=== PATIENT | male | born 1950 | race Caucasian/White ===

== ENCOUNTER 2022-03-13 07:10 | Day surgery (SDC) | payer OTHER ==
[~2022-03-13] VITALS: Ht 185.4 cm; Wt 100.5 kg
[~2022-03-13 07:10] MED LIST: ALLO300 PO; BISA5EC PO; BUME1 PO; CIPR500 PO; ELIQUIS5 M2 PO; EPLERENONE PO; FERR325 PO; FINA5 PO; FURO40 PO; HYDCHL12.5; HYDCHL12.5 PO; HYDCHL25 PO; Hair, Skin & N1 EACH; Humulin N100 UNIT/1 SC; INS70/30I SC; INSUASPI SC; INSULANPEN SC; LACT10SY PO; LEVOTHYROXINE75 MC8 PO; MYCO250 PO; ONDA4 PO; Omeprazole20 M1 PO; PANT40; PANT40 PO; POTCHL10ER PO; PRED5 PO; Percocet 5-3251 EACH PO; RIFA550T2 PO; Ranitidine HCl300 MG PO; SUCR1SU PO; TACR1 PO; TAMS.4ER PO; Ventolin/Prove6.7 GM INH
[2022-03-13] MEDS ORDERED: ONDA4 PO (07:44)
--- NOTE | 2022-03-13 07:52 | NUR ---
03/13/22 0752 Tata Graves AT 0759 P [id number]
== END 2022-03-13 09:12 | disposition home or self-care (01) ==
LOC: ORSCSDS 07:10
PROVIDERS: Ophthalmology
PROC: 08RK3JZ Replacement of Left Lens with Synthetic Substitute, Percutaneous Approach (ICD-10-PCS; principal; 2022-03-13 08:30)
DX: H25.13 Age-related nuclear cataract, bilateral (principal); Z87.891 Personal history of nicotine dependence; E11.9 Type 2 diabetes mellitus without complications; I10 Essential (primary) hypertension; Z79.899 Other long term (current) drug therapy; Z79.84 Long term (current) use of oral hypoglycemic drugs
CPT/HCPCS: 82947; J2001; J2250; J3010; J3301; J7040; V2632

== ENCOUNTER 2023-01-31 17:04 | Emergency (ER) | payer OTHER ==
[~2023-01-31] VITALS: Ht 182.9 cm; Wt 95.2 kg
[2023-01-31 17:49] LABS: BASOPHILS ABSOLUTE AUTO 0.06 K/mm3 (0.00-0.23); BASOPHILS PERCENT AUTO 1 % (0-2); EOSINOPHILS ABSOLUTE AUTO 0.09 K/mm3 (0.00-0.68); EOSINOPHILS PERCENT AUTO 1 % (0-6); Hematocrit 44.5 % (37.0-53.0); Hemoglobin 14.2 g/dL (13.5-17.5); IMMATURE GRAN ABSOLUTE AUTO 0.06 K/mm3 (0.00-0.10); IMMATURE GRAN PERCENT AUTO 1 % (0-1); LYMPHOCYTES ABSOLUTE AUTO 2.64 K/mm3 (0.84-5.20); LYMPHOCYTES PERCENT AUTO 20 % (21-46); MONOCYTES ABSOLUTE AUTO 1.01 K/mm3 (0.16-1.47); MONOCYTES PERCENT AUTO 8 % (4-13); Mean Corpuscular HGB Conc 31.9 g/dL (31.5-36.5); Mean Corpuscular Volume 79 fL (80-100); Mean Platelet Volume 10.5 fL (9.1-12.4); NEUTROPHILS ABSOLUTE AUTO 9.33 K/mm3 (1.96-9.15); NEUTROPHILS PERCENT AUTO 71 % (41-73); Platelet Count 249 K/mm3 (150-400); RDW Coefficient Variation 14.8 % (11.7-14.2); RDW Standard Deviation 41.6 fL (35.1-46.3); Red Blood Cell Count 5.67 M/mm3 (4.30-5.90); White Blood Cell Count 13.19 K/mm3 (4.00-11.30)
[2023-01-31 18:07] LABS: Albumin, Blood 3.8 g/dL (3.4-5.0); Albumin/Globulin Ratio 1.2 (0.8-1.8); Bilirubin, Total 0.9 mg/dL (0.1-1.0); Bun/Creatinine Ratio 15.9 (12.0-20.0); Calcium, Blood 9.1 mg/dL (8.5-10.1); Creatinine, Blood 1.64 mg/dL (0.60-1.20); Globulin, Blood 3.2 g/dL (2.2-4.0); Potassium, Blood 4.7 mmol/L (3.5-5.5)
[2023-01-31 18:35] LABS: Magnesium, Blood 1.9 mg/dL (1.6-2.4)
[2023-01-31 18:36] LABS: Phosphorus, Blood 2.8 mg/dL (2.5-4.9); Thyroid Stimulating Hormone 2.46 uIU/mL (0.360-4.800)
[2023-01-31] MEDS ORDERED: CARV3.125 PO (22:27)
[2023-02-01 03:38] VITALS: BP 137/82
== END 2023-02-01 03:39 | disposition home or self-care (01) ==
LOC: ER 17:04
PROVIDERS: Emergency Medicine; Physician Assistant
DX: I48.92 Unspecified atrial flutter (principal); I10 Essential (primary) hypertension; E11.9 Type 2 diabetes mellitus without complications; B19.20 Unspecified viral hepatitis C without hepatic coma; Z91.030 Bee allergy status; Z91.048 Other nonmedicinal substance allergy status; Z79.01 Long term (current) use of anticoagulants; Z79.52 Long term (current) use of systemic steroids; Z79.899 Other long term (current) drug therapy; Z87.891 Personal history of nicotine dependence
CPT/HCPCS: 71046; 80053; 83690; 83735; 84100; 84443; 84484; 85025; 85379; 93005; 93010; 96360; 99285-25; A9270; J7030

== ENCOUNTER 2023-05-24 09:42 | Emergency (ER) | payer OTHER ==
[~2023-05-24] VITALS: Ht 180.3 cm; Wt 90.7 kg
[~2023-05-24 09:42] MED LIST changes: +CARV3.125 PO
[2023-05-24 09:58] LABS: BASOPHILS ABSOLUTE AUTO 0.02 K/mm3 (0.00-0.23); BASOPHILS PERCENT AUTO 0 % (0-2); EOSINOPHILS ABSOLUTE AUTO 0.09 K/mm3 (0.00-0.68); EOSINOPHILS PERCENT AUTO 1 % (0-6); Hemoglobin 12.2 g/dL (13.5-17.5); IMMATURE GRAN ABSOLUTE AUTO 0.02 K/mm3 (0.00-0.10); IMMATURE GRAN PERCENT AUTO 0 % (0-1); LYMPHOCYTES ABSOLUTE AUTO 0.86 K/mm3 (0.84-5.20); LYMPHOCYTES PERCENT AUTO 13 % (21-46); MONOCYTES ABSOLUTE AUTO 0.46 K/mm3 (0.16-1.47); MONOCYTES PERCENT AUTO 7 % (4-13); Mean Corpuscular HGB 24.9 pg (26.0-34.0); Mean Corpuscular HGB Conc 31.3 g/dL (31.5-36.5); Mean Corpuscular Volume 80 fL (80-100); Mean Platelet Volume 10.7 fL (9.1-12.4); NEUTROPHILS ABSOLUTE AUTO 5.27 K/mm3 (1.96-9.15); NEUTROPHILS PERCENT AUTO 79 % (41-73); Platelet Count 191 K/mm3 (150-400); RDW Standard Deviation 39.7 fL (35.1-46.3); Red Blood Cell Count 4.89 M/mm3 (4.30-5.90); White Blood Cell Count 6.72 K/mm3 (4.00-11.30)
[2023-05-24 10:16] LABS: Albumin, Blood 3.3 g/dL (3.4-5.0); Albumin/Globulin Ratio 1.1 (0.8-1.8); Bilirubin, Total 0.5 mg/dL (0.1-1.0); Calcium, Blood 8.5 mg/dL (8.5-10.1); Creatinine, Blood 1.53 mg/dL (0.60-1.20); Potassium, Blood 4.3 mmol/L (3.5-5.5); Total Protein, Blood 6.3 g/dL (6.4-8.2)
[2023-05-24 10:47] LABS: Influenza A, PCR NEGATIVE (NEGATIVE); Influenza B, PCR NEGATIVE (NEGATIVE); Resp Syncytial Virus, PCR NEGATIVE (NEGATIVE)
[2023-05-24 11:00] LABS: SARS-Cov-2 (COVID-19) PCR, MMC POSITIVE (NEGATIVE)
[2023-05-24 12:00] VITALS: BP 130/81
== END 2023-05-24 12:34 | disposition home or self-care (01) ==
LOC: ER 09:42
PROVIDERS: Emergency Medicine
DX: U07.1 COVID-19 (principal); E11.649 Type 2 diabetes mellitus with hypoglycemia without coma; Z79.4 Long term (current) use of insulin; Z79.01 Long term (current) use of anticoagulants; Z79.52 Long term (current) use of systemic steroids; Z79.890 Hormone replacement therapy; Z87.891 Personal history of nicotine dependence
CPT/HCPCS: 0241U; 71046; 80053; 82947; 85025; 93005; 93010; 96374; 99285-25; J2405

== ENCOUNTER 2023-11-25 21:56 | Emergency (ER) | payer OTHER ==
[~2023-11-25] VITALS: Ht 182.9 cm; Wt 90.7 kg
[2023-11-25 22:19] LABS: BASOPHILS ABSOLUTE AUTO 0.04 K/mm3 (0.00-0.23); BASOPHILS PERCENT AUTO 1 % (0-2); EOSINOPHILS ABSOLUTE AUTO 0.16 K/mm3 (0.00-0.68); EOSINOPHILS PERCENT AUTO 2 % (0-6); Hematocrit 32.8 % (37.0-53.0); Hemoglobin 10.3 g/dL (13.5-17.5); IMMATURE GRAN ABSOLUTE AUTO 0.02 K/mm3 (0.00-0.10); IMMATURE GRAN PERCENT AUTO 0 % (0-1); LYMPHOCYTES ABSOLUTE AUTO 0.68 K/mm3 (0.84-5.20); LYMPHOCYTES PERCENT AUTO 9 % (21-46); MONOCYTES ABSOLUTE AUTO 0.54 K/mm3 (0.16-1.47); MONOCYTES PERCENT AUTO 8 % (4-13); Mean Corpuscular HGB 25.1 pg (26.0-34.0); Mean Corpuscular HGB Conc 31.4 g/dL (31.5-36.5); Mean Corpuscular Volume 80 fL (80-100); Mean Platelet Volume 10.3 fL (9.1-12.4); NEUTROPHILS ABSOLUTE AUTO 5.78 K/mm3 (1.96-9.15); NEUTROPHILS PERCENT AUTO 80 % (41-73); Platelet Count 234 K/mm3 (150-400); RDW Coefficient Variation 13.7 % (11.7-14.2); RDW Standard Deviation 39.5 fL (35.1-46.3); Red Blood Cell Count 4.11 M/mm3 (4.30-5.90); White Blood Cell Count 7.22 K/mm3 (4.00-11.30)
[2023-11-25 22:40] LABS: Albumin, Blood 3.3 g/dL (3.4-5.0); Albumin/Globulin Ratio 0.9 (0.8-1.8); Bilirubin, Total 1.1 mg/dL (0.1-1.0); Bun/Creatinine Ratio 14.8 (12.0-20.0); Calcium, Blood 9.4 mg/dL (8.5-10.1); Creatinine, Blood 1.28 mg/dL (0.60-1.20); Globulin, Blood 3.5 g/dL (2.2-4.0); Potassium, Blood 4.3 mmol/L (3.5-5.5); Total Protein, Blood 6.8 g/dL (6.4-8.2)
[2023-11-25] MEDS ORDERED: NS 1,000 ML IV SCH (23:25)
[2023-11-25] MEDS ORDERED: Ondansetron HCl 2 MG / ML 2ML Vial IV ONE (23:25)
[2023-11-26] VITALS: BP 194/81
== END 2023-11-26 00:53 | disposition home or self-care (01) ==
LOC: ER 21:56
PROVIDERS: Emergency Medicine
DX: R11.2 Nausea with vomiting, unspecified (principal); Z79.899 Other long term (current) drug therapy; Z79.4 Long term (current) use of insulin; Z79.890 Hormone replacement therapy; Z79.52 Long term (current) use of systemic steroids
CPT/HCPCS: 80053; 83690; 85025; 96361; 96374; 99284-25; J2405; J7030

== ENCOUNTER 2023-12-01 14:50 | Inpatient (IN) | payer OTHER ==
[~2023-12-01] VITALS: Ht 182.9 cm; Wt 86.4 kg
[2023-12-01 15:35] LABS: BASOPHILS ABSOLUTE AUTO 0.02 K/mm3 (0.00-0.23); BASOPHILS PERCENT AUTO 0 % (0-2); EOSINOPHILS ABSOLUTE AUTO 0.07 K/mm3 (0.00-0.68); EOSINOPHILS PERCENT AUTO 1 % (0-6); Hematocrit 30.8 % (37.0-53.0); Hemoglobin 9.6 g/dL (13.5-17.5); IMMATURE GRAN ABSOLUTE AUTO 0.02 K/mm3 (0.00-0.10); IMMATURE GRAN PERCENT AUTO 0 % (0-1); LYMPHOCYTES ABSOLUTE AUTO 0.84 K/mm3 (0.84-5.20); LYMPHOCYTES PERCENT AUTO 16 % (21-46); MONOCYTES ABSOLUTE AUTO 0.35 K/mm3 (0.16-1.47); MONOCYTES PERCENT AUTO 7 % (4-13); Mean Corpuscular HGB 25.2 pg (26.0-34.0); Mean Corpuscular HGB Conc 31.2 g/dL (31.5-36.5); Mean Corpuscular Volume 81 fL (80-100); NEUTROPHILS ABSOLUTE AUTO 3.98 K/mm3 (1.96-9.15); NEUTROPHILS PERCENT AUTO 75 % (41-73); Platelet Count 175 K/mm3 (150-400); RDW Standard Deviation 40.7 fL (35.1-46.3); Red Blood Cell Count 3.81 M/mm3 (4.30-5.90); White Blood Cell Count 5.28 K/mm3 (4.00-11.30)
[2023-12-01 16:00] LABS: Albumin, Blood 3.5 g/dL (3.4-5.0); Albumin/Globulin Ratio 1.1 (0.8-1.8); Bilirubin, Total 1.2 mg/dL (0.1-1.0); Bun/Creatinine Ratio 14.6 (12.0-20.0); Calcium, Blood 8.9 mg/dL (8.5-10.1); Creatinine, Blood 2.47 mg/dL (0.60-1.20); Globulin, Blood 3.2 g/dL (2.2-4.0); Potassium, Blood 4.5 mmol/L (3.5-5.5); Total Protein, Blood 6.7 g/dL (6.4-8.2)
[2023-12-01] MEDS ORDERED: NS 1,000 ML IV SCH (20:10)
[2023-12-01] MEDS ORDERED: Acetaminophen 325 MG TABLET PO PRN (20:15)
[2023-12-01 20:36] LABS: Source, Urine Clean Catch
[2023-12-01 20:40] LABS: Appearance, Urine Hazy (Clear); Bilirubin, Urine Neg (Neg); Blood, Urine Neg (Neg); Color, Urine Yellow (P-Yellow); Glucose Qualitative, Urine 1+ (Neg); Ketones, Urine 3+ (Neg); Leukocyte Esterase, Urine 1+ (Neg); Nitrite, Urine Neg (Neg); Protein, Urine 2+ (Neg); Urobilinogen, Urine NORM (Normal)
[2023-12-01 20:50] LABS: Amorphous Light (0-Heavy); Calcium Oxalate Crystals Many /hpf
[2023-12-01 20:51] LABS: Bacteria Few /hpf; Red Blood Cells, Urine Not Seen /hpf (0-2); Squamous Epithelial Cells Rare /hpf (Few)
[2023-12-01] MEDS ORDERED: Mycophenolate Mofetil 250 MG Cap PO SCH (21:00)
[2023-12-01] MEDS ORDERED: Tacrolimus 1 MG Cap PO SCH (21:00)
[2023-12-01] MEDS ORDERED: Apixaban 5 MG Tab PO SCH (21:00)
[2023-12-01] MEDS ORDERED: NS 500 ML IV ONE (21:00)
[2023-12-01 21:21] VITALS: BP 175/86
[2023-12-01] MEDS ORDERED: BACLOFEN10 M4 (21:25)
[2023-12-01] MEDS ORDERED: BACL10 PO (21:30)
[2023-12-01] MEDS ORDERED: FentaNYL Citrate 50 MCG/ML 2 ML Injection IV PRN (21:40)
[2023-12-01] MEDS ORDERED: Metoclopramide HCl 5MG / ML 2ML Vial IV PRN (21:45)
[2023-12-01] MEDS ORDERED: Ondansetron HCl 2 MG / ML 2ML Vial IV PRN (21:45)
[2023-12-02] MEDS ORDERED: OxyCODONE HCL 5 MG TAB PO ONE (03:15)
[2023-12-02 04:06] VITALS: BP 157/68
--- NOTE | 2023-12-02 04:39 | NUR ---
NOC SHIFT SUMMARY PT ADMITTED TO ROOM 352. REPORT RECEIVED FROM ISRAEL ARIAS. PT IS NAUSEOUS BUT GETS SOME RELIEF WITH ZOFRAN. IVF RUNNING FOR DIA. POST VOID RESIDUAL DONE PER MD ORDER-BLADDER SCAN NEGATIVE. PTS BACK IS VERY PAINFUL. HE IS FRUSTRATED BECAUSE HE DOESNT FEEL LIKE FENTANYL GIVES HIM ENOUGH RELIEF TO LAST 4 HOURS. MD CALLED. ORDERS ONE TIME DOSE OF PTS HOME DOSE OF 10MG OXYCODONE BUT HESITATES TO ORDER MORE BECAUSE OF HIS RENAL FUNCTION PANEL. SAYS WE CAN SEE HOW HIS KIDNEY FUNCTION IS IN THE MORNING AND MAYBE REASSESS ORDERING HIS HOME PAIN MEDS THEN.
[2023-12-02 05:58] LABS: Hematocrit 28.3 % (37.0-53.0); Hemoglobin 8.9 g/dL (13.5-17.5); Mean Corpuscular HGB 25.3 pg (26.0-34.0); Mean Corpuscular HGB Conc 31.4 g/dL (31.5-36.5); Mean Corpuscular Volume 80 fL (80-100); Mean Platelet Volume 11.5 fL (9.1-12.4); Platelet Count 148 K/mm3 (150-400); RDW Coefficient Variation 13.8 % (11.7-14.2); Red Blood Cell Count 3.52 M/mm3 (4.30-5.90); White Blood Cell Count 4.48 K/mm3 (4.00-11.30)
[2023-12-02] MEDS ORDERED: Levothyroxine Sodium 0.075 MG Tab PO SCH (06:00)
[2023-12-02 06:24] LABS: Albumin, Blood 3.1 g/dL (3.4-5.0); Anion Gap 10 mmol/L (3-11); Blood Urea Nitrogen 29 mg/dL (8-24); Bun/Creatinine Ratio 14.2 (12.0-20.0); CO2, Blood 26 mmol/L (21-32); Calcium, Blood 8.1 mg/dL (8.5-10.1); Chloride, Blood 111 mmol/L (98-108); Creatinine, Blood 2.04 mg/dL (0.60-1.20); Glomerular Filtration Rate 34 (60-); Glucose, Blood 147 mg/dL (70-99); Magnesium, Blood 1.8 mg/dL (1.6-2.4); Phosphorus, Blood 3.3 mg/dL (2.5-4.9); Potassium, Blood 3.8 mmol/L (3.5-5.5); Sodium, Blood 143 mmol/L (136-145)
[2023-12-02 07:14] VITALS: BP 158/69
[2023-12-02] MEDS ORDERED: Insulin Human Lispro 100 Units/ML 3ML Syringe SC SCH (07:30)
[2023-12-02] MEDS ORDERED: Carvedilol 6.25 MG Tab PO SCH (08:00)
[2023-12-02] MEDS ORDERED: Allopurinol 300 MG Tab PO SCH (09:00)
[2023-12-02] MEDS ORDERED: Tamsulosin HCl 0.4 MG Cap PO SCH (09:00)
[2023-12-02] MEDS ORDERED: PredniSONE 5 MG Tab PO SCH (09:00)
[2023-12-02] MEDS ORDERED: Finasteride 5 MG Tab PO SCH (09:00)
[2023-12-02] MEDS ORDERED: OxyCODONE HCL 5 MG TAB PO PRN (09:45)
[2023-12-02] MEDS ORDERED: Baclofen 10 MG Tab PO SCH (14:00)
[2023-12-02] MEDS ORDERED: Sennosides 8.6 MG Tab PO SCH (15:40)
[2023-12-02] MEDS ORDERED: Darbepoetin Alfa In Albumn Sol 40 MCG/0.4 ML SC ONE (16:00)
[2023-12-02 16:29] VITALS: BP 155/62
--- NOTE | 2023-12-02 17:42 | NUR ---
SHIFT SUMMARY: PT ORIENTED TO SELF ONLY. DR. ALEXANDER ARRIVED EARLY THIS AM TO ASSESS PT. WAS CONSIDERING REPEAT HEAD SCAN IF FURTHER NEURO CHANGES OCCURED. NO MENTATION CHANGES FROM YESTERDAY. BED AND CHAIR ALARM IN PLACE D/T EXCESSIVE OOB W/O ASSISTANCE. PT PULLED IV EARLY THIS SHIFT. SPOKE WITH RESIDENT DOCTOR AND RECEIVED NO IV ACCESS ORDER. PT DRINKING FLUIDS WELL. PT/OT ORDER IN PLACE WITH COG EVAL PLACED IN OT ORDER. SPOKE WITH DR. DOMINGUEZ ASKING FOR PSYCH EVAL PER DENSITY CONTROL PUNCHER. PT WILL NEED ASSESSED FOR GUARDIANSHIP. FACE SHEET TUBED TO ER FOR DR. BALLARD. ER STAFF MADE AWARE. PT RECEIVED SHOWER THIS SHIFT. WOUNDS REWRAPPED/DRESSED POST SHOWER. CALL LIGHT IN REACH. BED IN LOWEST POSITION. ALARMS SET FOR BED/CHAIR.
[2023-12-02] MEDS ORDERED: CefTRIAXone Sodium 1,000 MG in NS 100 ML IV SCH (18:00)
--- NOTE | 2023-12-02 18:00 | NUR ---
SHIFT SUMMARY: PT A&O X4. PLEASANT AND COOPERATIVE WITH CARE. DR. BOWLING ARRIVED THIS AM FOR FOLLOW-UP/ASSESSMENT. CREATININE IMPROVED. DR. BOWLING STATED TO HAVE VALUE UNDER 2.00 TO BE ABLE TO D/C AT A SAFE STANDPOINT. PER DR. BOWLING, NS DECREASED TO 75/HR. PT C/O BACK PAIN THROUGHOUT SHIFT. HOME DOSAGE 10MG OXYCODONE RESTARTED WITH SCHEDULED BACLOFEN ADDED. PT RECIEVED MEDS PER EMAR WITH SLIGHT PAIN IMPROVEMENT. PT RECEIVED ARANESP INJECTION; TOLERATED WELL. ACCU CHECKS OBTAINED AND MEDICATED PER EMAR. IV ABX STARTED FOR UTI. CALL LIGHT IN REACH. BED IN LOWEST POSITION. INDEPENDENT IN ROOM.
[2023-12-03 06:04] VITALS: BP 173/64
[2023-12-03 06:15] VITALS: BP 180/85
--- NOTE | 2023-12-03 06:20 | NUR ---
PATIENT REPORTS BACK PAIN IS WELL CONTROLED THROUGH THE SHIFT. BP IS ELEVATED THIS AM 173/64, PATIENT IS ASYMPTOMATIC. DR CHERY IS NOTIFIED AND AN ORDER TO GIVE AM DOSE OF CARVEDILOL NOW.
[2023-12-03] MEDS ORDERED: Carvedilol 6.25 MG Tab PO ONE (06:30)
[2023-12-03 07:03] LABS: Albumin, Blood 3.1 g/dL (3.4-5.0); Anion Gap 7 mmol/L (3-11); Blood Urea Nitrogen 16 mg/dL (8-24); Bun/Creatinine Ratio 10.1 (12.0-20.0); CO2, Blood 28 mmol/L (21-32); Calcium, Blood 8.4 mg/dL (8.5-10.1); Chloride, Blood 109 mmol/L (98-108); Creatinine, Blood 1.58 mg/dL (0.60-1.20); Glomerular Filtration Rate 46 (60-); Glucose, Blood 163 mg/dL (70-99); Phosphorus, Blood 3.1 mg/dL (2.5-4.9); Potassium, Blood 4.3 mmol/L (3.5-5.5); Sodium, Blood 140 mmol/L (136-145)
[2023-12-03 07:58] VITALS: BP 136/61
--- NOTE | 2023-12-03 09:56 | NUR ---
VERBAL ORDER PATIENT STATED HE TAKES 18U GLARGINE DAILY. NEW ORDERS OBTAINED FROM ANUPAM. PATIENT ALSO STATED HE NO LONGER TAKES FLOMAX PER HIS OUT PATIENT UROLOGIST. ORDER TO DISCONTINUE THIS MEDICATION WAS RECIEVED.
[2023-12-03] MEDS ORDERED: Acetaminophen650 M1 PO (13:27)
[2023-12-03] MEDS ORDERED: CARV6.25 PO (13:30)
[2023-12-03] MEDS ORDERED: Cefpodoxime Pr100 MG PO (13:32)
--- NOTE | 2023-12-03 14:08 | NUR ---
DISCHARGE NOTE PATIENT A/OX4 AND INDEPENDENT IN ROOM. PATIENT WITH NEW ORDERS THIS SHIFT TO DISCONTINUE FLOMAX AND REPORTED TO ATTENDING THAT PATIENT RECIEVES INSULIN GLARGINE 18 UNITS EVERY MORNING AT HOME. PATIENT DENIED PAIN AND NAUSEA THIS SHIFT, NO PRNS GIVEN. TELEMETRY WAS IN PLACE UNTIL DISCHARGE ORDER WAS RECIEVED. AM DOSE OF COREG WAS GIVEN BY PRODUCTION SOLDERER NURSE PER MD RECOMMENDATIONS AND WAS NOT GIVEN AT SCHEDULED TIME. SBP 130S THIS AM. PATIENT WAS DISCHARGED THIS AFTERNOON VIA WHEELCHAIR AND ASSISTED TO HIS FAMILY VEHICLE. EDUCATION PROVIDED TO PATIENT REGARDING DISCHARGE MEDICATIONS AND FOLLOW UP APPOINTMENTS, PATIENT RECEPTIVE. NO OTHER CONCERNS AT THIS TIME.
--- NOTE | 2023-12-03 14:19 | NUR ---
REVIEWED ALL DOCUMENTATION AND NOTES BY ISRAEL BRADLEY AND AGREE WITH THEM.
[2023-12-04 02:12] LABS: CMV ANTIBODY IGG >10.00 U/mL (<=0.70); CMV ANTIBODY IGM <8.0 AU/mL (<=29.9)
[2023-12-04 03:27] LABS: TACROLIMUS BY HPLC-MS/MS 6.5 ng/mL
== END 2023-12-03 13:59 | disposition home health service (06) | DRG 699 ==
LOC: ER 14:50 → MEDS 20:09
PROVIDERS: Internal Medicine Nephrology; Nurse Practitioner Acute Care; Physician Assistant; Student in an Organized Health Care Education/Training Program; ADMIT Internal Medicine
DX: T86.19 Other complication of kidney transplant (principal); I48.20 Chronic atrial fibrillation, unspecified; N17.9 Acute kidney failure, unspecified; Z94.4 Liver transplant status; Z94.0 Kidney transplant status; N40.0 Benign prostatic hyperplasia without lower urinary tract symptoms; E03.9 Hypothyroidism, unspecified; I12.9 Hypertensive chronic kidney disease with stage 1 through stage 4 chronic kidney disease, or unspecified chronic kidney disease; M10.9 Gout, unspecified; N18.30 Chronic kidney disease, stage 3 unspecified; Z79.01 Long term (current) use of anticoagulants; Z79.890 Hormone replacement therapy; Z79.4 Long term (current) use of insulin; Z79.899 Other long term (current) drug therapy; Z91.038 Other insect allergy status; Z88.8 Allergy status to other drugs, medicaments and biological substances; Z91.048 Other nonmedicinal substance allergy status; D63.1 Anemia in chronic kidney disease; E10.22 Type 1 diabetes mellitus with diabetic chronic kidney disease; E86.9 Volume depletion, unspecified; Z90.89 Acquired absence of other organs; Z98.890 Other specified postprocedural states; Z87.19 Personal history of other diseases of the digestive system; Z87.891 Personal history of nicotine dependence
CPT/HCPCS: 36415; 76770; 80053; 80069; 80197; 81001; 82550; 82947; 83690; 83735; 85018; 85025; 85027; 86644; 86645; 99285; A9270; J0696; J0881; J2405; J3010; J7030; J7040; J7507; J7512; J7517

== ENCOUNTER → 2023-12-14 | Outpatient (CLI) | payer OTHER ==
[~2023-12-14] MED LIST changes: +Acetaminophen650 M1 PO; +BACL10 PO; +BACLOFEN10 M4; +CARV6.25 PO; +Cefpodoxime Pr100 MG PO
[2023-12-14 11:10] LABS: Creatinine Urine 98.7 mg/dL (27.00-270.00); Microalbumin, Urine Quant. 8.65 mg/L (0.000-20.000); Protein, Urine Quantitative 14.7 mg/dL (0.0-11.9)
== END ==
LOC: LAB SHORT 08:00 → LAB 08:00
PROVIDERS: Internal Medicine Nephrology
DX: N18.30 Chronic kidney disease, stage 3 unspecified (principal); D63.1 Anemia in chronic kidney disease; N25.81 Secondary hyperparathyroidism of renal origin; E55.9 Vitamin D deficiency, unspecified; E78.00 Pure hypercholesterolemia, unspecified; R76.9 Abnormal immunological finding in serum, unspecified; R94.5 Abnormal results of liver function studies; R94.6 Abnormal results of thyroid function studies
CPT/HCPCS: 81050; 82043; 82570; 84156

== ENCOUNTER → 2024-12-23 | Outpatient (CLI) | payer OTHER ==
[2024-12-23 14:36] LABS: Microalbumin, Urine Quant. 15.8 mg/L (0.000-20.000); Protein, Urine Quantitative 15.9 mg/dL (0.0-11.9)
== END ==
LOC: LAB 13:13 → LAB SHORT 13:13 → LAB FUT 12-21 08:15
PROVIDERS: Internal Medicine Nephrology
DX: N18.30 Chronic kidney disease, stage 3 unspecified (principal); R94.5 Abnormal results of liver function studies; R94.6 Abnormal results of thyroid function studies; R76.9 Abnormal immunological finding in serum, unspecified; E29.1 Testicular hypofunction; N25.81 Secondary hyperparathyroidism of renal origin; E55.9 Vitamin D deficiency, unspecified; Z94.0 Kidney transplant status; D63.1 Anemia in chronic kidney disease
CPT/HCPCS: 82043; 82570; 84156